=== PATIENT | female | born 1960 | race Caucasian/White ===

== ENCOUNTER 2023-12-01 11:55 | Inpatient (IN) ==
--- NOTE | 2023-12-01 12:19 | Emergency Department Note ---
ED Provider Note History of Present Illness Chief Complaint: Fall Stated Complaint: HEAD INJURY, FALL Time Seen by Provider: 12/01/23 12:19 This is a 63-year-old female with a history of anxiety, bipolar, COPD, gastric ulcer, migraines, atrial fibrillation, who presents to the emergency department with headache, neck pain, and multiple episodes of syncope over the past few weeks. Patient states that she passed out 2 weeks ago and hit her head. She believes she was unconscious for about 30 minutes. She was seen in [place] emergency department and was told that they wanted to admit her however she could not get a bed so she decided to leave. Over the last few weeks she has had ongoing headache and neck pain and states that she has passed out between 3 and 5 more additional times. She does have a history of atrial fibrillation which she can generally not feel when she is going in and out of A-fib. She was on Xarelto and a bunch of other medications however states that she has stopped all of these medications because she "fired my doctor" because "he wanted to protect his reputation" and would not prescribe her Klonopin. Patient states that she feels "out of my body". She has been vomiting intermittently over the past few weeks and cannot keep anything down. She denies any chest pain or shortness of breath, no new numbness or tingling or weakness in her upper or lower extremities, or abdominal pain. Home Medications Medication Instructions Recorded Confirmed Type clonazepam 1 mg tablet (Klonopin) 1 mg PO TID 06/29/22 12/01/23 History clotrimazole 1 % topical cream 1 applic topical BID #30 grams 06/29/22 12/01/23 Rx loperamide 2 mg capsule 2 mg PO Q6H PRN Other 06/29/22 12/01/23 History mirabegron 25 mg tablet,extended 25 mg PO DAILY 06/29/22 12/01/23 History release 24 hr (Myrbetriq) omeprazole 40 mg capsule,delayed 40 mg PO BID 06/29/22 12/01/23 History release rivaroxaban 10 mg tablet (Xarelto) 10 mg PO DAILY 06/29/22 12/01/23 History sertraline 100 mg tablet (Zoloft) 100 mg PO BID 06/29/22 12/01/23 History umeclidinium 62.5 mcg-vilanterol 1 inh inhalation UD 06/29/22 12/01/23 History 25 mcg/actuation powdr for inhalation (Anoro Ellipta) quetiapine 200 mg tablet 200 mg PO PM 12/01/23 12/01/23 History Allergies Allergy/AdvReac Type Severity Reaction Status Date / Time IV contrast media Allergy Uncoded 06/29/22 13:26 Latex Allergy Uncoded 06/29/22 13:26 Past Med/Surg History Problem List (Updated 12/01/23 @ 17:52 by PROSPER Stewart) Headache (Acute) Elevated troponin (Acute) Hypertensive urgency (Acute) Prediabetes Hyperlipidemia Atrial fibrillation Hearing difficulty Migraines Acid reflux Stomach ulcer Depression COPD (chronic obstructive pulmonary disease) Arthritis Anxiety Bipolar disorder Overactive bladder Tobacco use Vitamin D deficiency Moderate aortic regurgitation Medical History Cyst of ovary Pneumonia Heart attack Gout Congestive heart failure Surgical History History of cholecystectomy History of hysterectomy Family History Mother Myocardial infarction Father Myocardial infarction Brother Myocardial infarction Sister Myocardial infarction Denies family history of Ovarian cancer Prostate cancer Breast cancer Colorectal cancer Social History Smoking Status: Current every day smoker packs per day: 1; Second Hand Exposure: No; Hx Alcohol Use: No Hx Substance Use: No Preferred Language: Danish marital status: Single Current Living Situation: Alone current occupational status: retired Feels Safe at Home: Yes Dental Care, Regularly: No Physical Activity Frequency: Does not Exercise Physical Exam Vital Signs Vital Signs - 24 hr 12/01/23 11:58 12/01/23 14:03 12/01/23 14:36 Temperature 98.2 F Temperature Source Skin Pulse Rate 86 97 H Pulse Rate [Radial] 82 Pulse Rhythm [Radial] Regular Respiratory Rate 18 18 Respiratory Effort / Characteristics Non-Labored Respiratory Depth Normal Respiratory Pattern Regular Blood Pressure 240/99 H Blood Pressure [Right Arm] 241/96 H Blood Pressure Mean Blood Pressure Mean [Right Arm] 144 Pulse Oximetry 99 99 Oxygen Delivery Method Room Air Room Air Sepsis Recent Fever Within 48 Hours No Sepsis New/Unexplained Change in Mental Status No Sepsis Action Taken by Nursing No Action Required 12/01/23 14:36 12/01/23 14:39 12/01/23 14:42 Temperature Temperature Source Pulse Rate 78 68 Pulse Rate [Radial] Pulse Rhythm [Radial] Respiratory Rate 20 26 H Respiratory Effort / Characteristics Respiratory Depth Respiratory Pattern Blood Pressure 240/99 H 212/63 H Blood Pressure [Right Arm] Blood Pressure Mean 186 112 Blood Pressure Mean [Right Arm] Pulse Oximetry Oxygen Delivery Method Sepsis Recent Fever Within 48 Hours Sepsis New/Unexplained Change in Mental Status Sepsis Action Taken by Nursing 12/01/23 14:45 12/01/23 14:51 12/01/23 14:52 Temperature Temperature Source Pulse Rate 68 68 Pulse Rate [Radial] Pulse Rhythm [Radial] Respiratory Rate 17 Respiratory Effort / Characteristics Respiratory Depth Respiratory Pattern Blood Pressure 189/87 H 189/87 H Blood Pressure [Right Arm] Blood Pressure Mean 136 Blood Pressure Mean [Right Arm] Pulse Oximetry Oxygen Delivery Method Sepsis Recent Fever Within 48 Hours Sepsis New/Unexplained Change in Mental Status Sepsis Action Taken by Nursing 12/01/23 15:55 12/01/23 17:49 Temperature Temperature Source Pulse Rate 71 Pulse Rate [Radial] 75 Pulse Rhythm [Radial] Respiratory Rate 16 Respiratory Effort / Characteristics Respiratory Depth Respiratory Pattern Blood Pressure Blood Pressure [Right Arm] 195/114 H Blood Pressure Mean Blood Pressure Mean [Right Arm] 141 Pulse Oximetry 95 Oxygen Delivery Method Room Air Sepsis Recent Fever Within 48 Hours Sepsis New/Unexplained Change in Mental Status Sepsis Action Taken by Nursing CONSTITUTIONAL: Well developed, well nourished, in no acute distress. HEAD: Normocephalic, atraumatic. EYES: PERRL, conjunctivae normal, extraocular muscles intact. ENMT: External ears normal. Nose with normal external appearance, no congestion. Oral mucous membranes moist. Oropharynx normal. NECK: There is tenderness in the midline cervical spine RESPIRATORY: Breathing unlabored and symmetric. Lungs clear to auscultation bilaterally. No wheeze, rales, or rhonchi. CARDIOVASCULAR: Regular rate and rhythm. No murmurs, rubs, or gallops. Radial pulses 2+ bilaterally ABDOMEN: Normal bowel sounds. Soft, nontender, no peritonitis. No masses. No CVA tenderness bilaterally. MUSCULOSKELETAL: Moves all extremities at all joints without pain or difficulty. No cyanosis or edema. Back with full range of motion. No midline back tenderness. SKIN: [place], warm, dry. NEUROLOGIC: Awake, alert, oriented. Gaze is conjugate. Face symmetric, speech normal. Moves head and all four extremities spontaneously. Sensation and strength grossly intact. PSYCHIATRIC: Tangential at times. Easily redirected. Comments on examiner's eyes multiple times Course Administered Medications Discontinued Medications Acetaminophen (Ofirmev) 1,000 mg in 100 mls @ 400 mls/hr IV NOW STA Stop: 12/01/23 14:54 Last Admin: 12/01/23 14:49 Dose: 400 mls/hr Documented By: GREYSON Labetalol HCl (Labetalol Hcl Iv 5 Mg/Ml 20ml) 10 mg IV NOW STA Stop: 12/01/23 14:13 Last Admin: 12/01/23 14:36 Dose: 10 mg Documented By: GREYSON Co-signed By: ANGELA Magnesium Oxide (Magnesium Oxide 400 Mg Tab) 400 mg PO NOW STA Stop: 12/01/23 13:48 Last Admin: 12/01/23 14:01 Dose: 400 mg Documented By: GREYSON Ondansetron HCl (Ondansetron Inj 2 Mg/Ml 2 Ml Vial) 4 mg IV NOW STA Stop: 12/01/23 14:41 Last Admin: 12/01/23 14:49 Dose: 4 mg Documented By: GREYSON Medical Decision Making Differential Diagnosis Syncope, cardiac arrhythmia, concussion, intracranial hemorrhage, fracture, neurovascular injury, disc bulge, disc herniation, electrolyte imbalance, ACS, pulmonary embolism, benzodiazepine withdrawal, among other pathology Laboratory Data 12/01/23 13:05 12/01/23 13:05 Lab Results 12/01/23 12/01/23 Range/Units 13:05 15:53 WBC 5.27 (4.8-10.8) K/ul RBC 4.99 (4.20-5.40) M/uL Hgb 13.6 (12.0-16.0) g/dl Hct 42.5 (37.0-47.0) % MCV 85.2 (80.0-100.0) fL MCH 27.3 (25.0-34.0) pg MCHC 32.0 (32.0-36.0) g/dL RDW Std Deviation 41.9 (36.4-46.3) fL RDW Coeff of Juan 13.5 (11.5-14.5) % Plt Count 161 (130-400) K/uL MPV 10.3 (9.4-12.4) fL Immature Gran % (Auto) 0.4 % Neut % (Auto) 67.9 % Lymph % (Auto) 23.1 % Wirt % (Auto) 7.6 % Eos % (Auto) 0.4 % Baso % (Auto) 0.6 % Neut # (Auto) 3.58 (1.40-6.50) K/uL Lymph # (Auto) 1.22 (1.20-3.40) K/uL Wirt # (Auto) 0.40 (0.11-0.59) K/uL Eos # (Auto) 0.02 (0.00-0.50) K/uL Baso # (Auto) 0.03 (0.00-0.20) K/uL Immature Gran # (Auto) 0.02 (0.01-0.20) K/uL Sodium 141 (136-145) mmol/L Potassium 4.0 (3.5-5.1) mmol/L Chloride 106 (98-107) mmol/L Carbon Dioxide 28 (21-32) mmol/L Anion Gap 7 (3-11) BUN 11 (6-23) mg/dl Creatinine 1.04 (0.6-1.2) mg/dl Est Cr Clr Drug Dosing Not Reportable Est GFR ( Amer) 65.8 ml/min Est GFR (Non-Af Amer) 56.7 ml/min BUN/Creatinine Ratio 10.6 (10-20) Glucose 112 H (70-99(Fasting)) mg/dl Calcium 9.0 (8.6-10.3) mg/dl Magnesium 1.6 L (1.7-2.4) mg/dl Total Bilirubin 0.5 (0.2-1.0) mg/dl AST 20 (13-39) U/L ALT 16 (7-52) U/L Alkaline Phosphatase 72 (34-104) U/L Troponin I High Sens 36.8 H 33.8 H (0-14) pg/ml Total Protein 6.7 (6.0-8.3) gm/dl Albumin 4.1 (3.4-5.0) gm/dl Globulin 2.6 (2.5-4.0) gm/dl Albumin/Globulin Ratio 1.6 (0.9-2) TSH 3.205 (0.300-4.500) uIu/ml Imaging Data Radiologist's Impression: Cervical Spine CT 12/01/23 12:42 CT cervical spine wo con CLINICAL HISTORY: fall head injury syncope neck pain TECHNIQUE: Multidetector row helical CT of the cervical spine was performed without administration of intravenous contrast. Coronal and sagittal reformations were obtained. Automated dose lowering techniques and/or adjustment according to patient size were utilized for this exam. Comparison: None available at the time of this dictation. FINDINGS: No acute fractures or subluxations are identified. Degenerative changes are seen in the visualized spine. The alignment is normal. Biapical scarring is seen. IMPRESSION: Degenerative changes without evidence of acute bony injury. ACT 112: Negative or not required by law. Electronically signed by: Michael Cm M.D. 12/01/2023 1:[address] 12/01/23 12:42 CT OF THE HEAD WITHOUT CONTRAST CLINICAL HISTORY: Fall. Headache. COMPARISON STUDY: No previous studies for comparison. TECHNIQUE: Helical axial images of the head were obtained without IV contrast. Automated exposure control was utilized for the study. A dose lowering technique was utilized adhering to the principles of ALARA. FINDINGS: No acute intracranial hemorrhage, midline shift or mass effect is present. The ventricular system is unremarkable. The basal cisterns are patent. No extra-axial collections are present. There are no findings to suggest acute dural sinus thrombosis or acute territorial infarct. No significant calvarial abnormalities are present. Bilateral mastoid air cells are partially opacified. IMPRESSION: 1. No acute intracranial findings. 2. No calvarial fractures. 3. Partially opacified bilateral mastoid air cells. ACT 112: Negative or not required by law. Electronically signed by: Brian Jiménez M.D. 12/01/2023 1:18 PM Chest X-Ray 12/01/23 13:53 XR chest 1V portable HISTORY: headache neck pain vomiting elevated trop COMPARISON: Chest 10/25/2022. FINDINGS: No pneumothorax. No pleural effusions. The cardiac silhouette remains mildly enlarged. No focal lung consolidations to suggest a pneumonia. No evidence for pulmonary edema. No acute fractures. IMPRESSION: Mild cardiomegaly. Otherwise, no acute process within the chest. ACT 112: Negative or not required by law. Electronically signed by: Gianni Kahn M.D. 12/01/2023 2:52 PM Chest CTA 12/01/23 14:00 CHEST CTA for PULMONARY ARTERIES CT DOSE: 811.33 mGy.cm HISTORY: syncope, elevated troponin TECHNIQUE: Multiaxial CT images of the chest were performed following the intravenous administration of contrast to evaluate the pulmonary arteries. 3D/Maximal intensity projection images were also obtained. Sagittal and coronal reformations were also reviewed. A dose lowering technique was utilized adhering to the principles of ALARA. COMPARISON STUDY: None. FINDINGS: Mild to moderate atherosclerotic plaque within the normal caliber thoracic aorta. No evidence for an aortic dissection. The heart is mildly enlarged. There is a trace pericardial effusion noted. No pleural effusions. No filling defects within the pulmonary arteries to suggest a pulmonary embolus. Mild coronary artery calcifications are noted normal thyroid gland. Normal esophagus. There is a small hiatus hernia. The visualized liver, spleen, and right adrenal gland are unremarkable. Mild thickening of the left adrenal gland. There is a small fat-containing left-sided Bochdalek hernia. No mediastinal or hilar lymphadenopathy. No acute fractures. No pneumothorax. Emphysema. A 5 mm groundglass nodule within the left lower lobe on image 110. There is a 12 mm irregular nodule/density within the right lung apex on image 167. This could represent a small primary bronchogenic malignancy. No focal lung consolidations to suggest a pneumonia. No evidence for pulmonary edema. IMPRESSION: 1. No evidence for a pulmonary embolus. 2. Emphysema. 3. A 12 mm irregular nodule/density within the right lung apex. This is concerning for an early primary bronchogenic malignancy. Nonemergent pulmonary consultation with consideration for follow-up PET/CT recommended for further evaluation. 4. A 5 mm groundglass nodule within the left lower lobe. Attention at follow-up recommended. ACT 112: Positive. There are findings on this exam that require communication between the performing entity and the patient following Patient Test Result Information Act ([place] Act 112) guidelines. Electronically signed by: Gianni Kahn M.D. 12/01/2023 3:47 PM MDM Narrative This is a 63-year-old female with a history above who presents to the emergency department stating that she has had multiple syncopal episodes over the past 2 weeks, the first 1 resulted in her being seen in the emergency department in [place] with recommendations to admit her however she ended up leaving because a bed was not available. She states that she has had vomiting and multiple episodes of syncope since then as well as an ongoing headache and neck pain. States that she stopped all of her medications including blood thinners, history of atrial fibrillation. See above for further details. Patient resting comfortably in no distress. She refuses a blood pressure cuff because it is too tight. The remainder of her vitals are normal. Patient is somewhat tangential at times but can be redirected. She does have some midline cervical tenderness. An IV was inserted and labs were obtained. EKG: Sinus rhythm with a rate of 69. Intervals within normal limits. Normal axis. No acute ST elevation or evidence of ischemia. An order was placed for continuous cardiac monitoring at time of evaluation demonstrates a sinus rhythm in the 80s Chest x-ray 1 view mild cardiomegaly otherwise no acute process. Labs: No leukocytosis or anemia. Magnesium minimally low at 1.6, repleted orally. Her troponin is elevated at 36.8. 2-hour repeat is pending. TSH is normal. No transaminitis. Patient did finally allow her blood pressure to be taken and it is 241/96. This could be hypertensive urgency and explain the elevated troponin. She was given labetalol. I did evaluate her about this and she generally does not have high blood pressure and does not take antihypertensive medication. Blood pressure improved to 189/87 with 10 mg labetalol. Given her description of multiple episodes of syncope with an elevated troponin, decided to obtain a CTA of the chest to evaluate for PE. This demonstrates no evidence of PE however findings are concerning for possible malignancy. I reviewed this with her. Patient's headache did improve with IV Tylenol. Repeat troponin is stable. Case reviewed with ED attending Dr. Carreon. Will admit the patient for suspected hypertensive urgency. Patient comfortable with this plan. Case discussed with [facility] hospitalist group and she will be admitted under Dr. Rodríguez. Impression Hypertensive urgency, Elevated troponin, Headache Discharge Plan Visit Data Chief Complaint: Fall Stated Complaint: HEAD INJURY, FALL ED Provider: Alison Carreon ED Midlevel Provider: Félix Dumont Discharge Problem: Hypertensive urgency, Elevated troponin, Headache Patient Disposition: Admitted As Inpatient Condition: Good Forms Stand Alone Forms: My [facility] Prescriptions Prescriptions: No Action clotrimazole 1 % cream 1 applic topical BID Qty: 30 0RF clonazepam [Klonopin] 1 mg tablet 1 mg PO TID Myrbetriq 25 mg tablet extended release 24 hr 25 mg PO DAILY Xarelto 10 mg tablet 10 mg PO DAILY omeprazole 40 mg capsule,delayed release(DR/EC) 40 mg PO BID sertraline [Zoloft] 100 mg tablet 100 mg PO BID loperamide 2 mg capsule 2 mg PO Q6H PRN (Reason: Other) Anoro Ellipta 62.5-25 mcg/actuation blister with device 1 inh inhalation UD Rx Instructions: 1 inh po daily unsure, no fill history quetiapine 200 mg tablet 200 mg PO PM Referrals Referrals: PCP,NO [Primary Care Provider] - Discharge Problem: Headache Qualifiers: Headache type: unspecified Headache chronicity pattern: unspecified pattern I ntractability: not intractable Qualified Code(s): R51.9 - Headache, unspecified
--- NOTE | 2023-12-01 13:14 | CT Scan Report ---
CT cervical spine wo con CLINICAL HISTORY: fall head injury syncope neck pain TECHNIQUE: Multidetector row helical CT of the cervical spine was performed without administration of intravenous contrast. Coronal and sagittal reformations were obtained. Automated dose lowering techn iques and/or adjustment according to patient size were utilized for this exam. Comparison: None available at the time of this dictation. FINDINGS: No acute fractures or subluxations are identified. Degenerative changes are seen in the visualized sp ine. The alignment is normal. Biapical scarring is seen. IMPRESSION: Degenerative changes without evidence of acute bony injury. ACT 112: Negative or not required by law. Electronically signed by: Michael Cm M.D. 12/01/2023 1:11 PM
--- NOTE | 2023-12-01 13:20 | CT Scan Report ---
CT OF THE HEAD WITHOUT CONTRAST CLINICAL HISTORY: Fall. Headache. COMPARISON STUDY: No previous studies for comparison. TECHNIQUE: Helical axial images of the head were obtained without IV contrast. Automated exposure con trol was utilized for the study. A dose lowering technique was utilized adhering to the principles o f ALARA. FINDINGS: No acute intracranial hemorrhage, midline shift or mass effect is present. The ventricular system is unremarkable. The basal cisterns are patent. No extra-axial collections are present. There are no findings to suggest acute dural sinus thrombosis or acute territorial infarct. No significant calvarial abnormalities are present. Bilateral mastoid air cells are partially opacified. IMPRESSION: 1. No acute intracranial findings. 2. No calvarial fractures. 3. Partially opacified bilateral mastoid air cells. ACT 112: Negative or not required by law. Electronically signed by: Brian Jiménez M.D. 12/01/2023 1:18 PM
[2023-12-01 13:34] LABS: Basophils # (auto) 0.03 K/uL (0.00-0.20); Basophils % (auto) 0.6 %; Eosinophils # (auto) 0.02 K/uL (0.00-0.50); Eosinophils % (auto) 0.4 %; Hematocrit (blood only) 42.5 % (37.0-47.0); Hemoglobin 13.6 g/dl (12.0-16.0); Immature Granulocytes # (auto) 0.02 K/uL (0.01-0.20); Immature Granulocytes % (auto) 0.4 %; Lymphocytes # (auto) 1.22 K/uL (1.20-3.40); Lymphocytes % (auto) 23.1 %; Mean Corpuscular Hemoglobin 27.3 pg (25.0-34.0); Mean Corpuscular Volume 85.2 fL (80.0-100.0); Mean Platelet Volume 10.3 fL (9.4-12.4); Monocytes % (auto) 7.6 %; Neutrophils # (auto) 3.58 K/uL (1.40-6.50); Neutrophils % (auto) 67.9 %; Platelet Count 161 K/uL (130-400); RDW Coefficient of Variation 13.5 % (11.5-14.5); RDW Standard Deviation 41.9 fL (36.4-46.3); Red Blood Count 4.99 M/uL (4.20-5.40); White Blood Count 5.27 K/ul (4.8-10.8)
[2023-12-01 13:44] LABS: Alanine Aminotransferase 16 U/L (7-52); Albumin Globulin Ratio 1.6 (0.9-2); Albumin Level 4.1 gm/dl (3.4-5.0); Alkaline Phosphatase 72 U/L (34-104); Anion Gap 7 (3-11); Aspartate Aminotransferase 20 U/L (13-39); BUN Creatinine Ratio 10.6 (10-20); Bilirubin,Total 0.5 mg/dl (0.2-1.0); Blood Urea Nitrogen 11 mg/dl (6-23); Carbon Dioxide 28 mmol/L (21-32); Chloride 106 mmol/L (98-107); Est GFR (African American) 65.8 ml/min; Est GFR (Non-African American) 56.7 ml/min; Globulin 2.6 gm/dl (2.5-4.0); Glucose 112 mg/dl (70-99(Fasting)); Magnesium 1.6 mg/dl (1.7-2.4); Sodium 141 mmol/L (136-145); Total Protein 6.7 gm/dl (6.0-8.3)
[2023-12-01 13:50] LABS: Troponin I High Sensitivity 36.8 pg/ml (0-14)
[2023-12-01 14:00] LABS: Thyroid Stimulating Hormone 3.205 uIu/ml (0.300-4.500)
[2023-12-01] MEDS: MAGNESIUM OXIDE 400 MG TAB PO STA (14:01)
[2023-12-01] MEDS: LABETALOL HCL IV 5 MG/ML 20ML IV STA (14:36)
[2023-12-01] MEDS: ONDANSETRON INJ 2 MG/ML 2 ML VIAL IV STA (14:49)
[2023-12-01] MEDS: ACETAMINOPHEN 1,000 MG/100 ML VIAL IV STA (14:49)
--- NOTE | 2023-12-01 14:54 | XRay Report ---
XR chest 1V portable HISTORY: headache neck pain vomiting elevated trop COMPARISON: Chest 10/25/2022. FINDINGS: No pneumothorax. No pleural effusions. The cardiac silhouette remains mildly enlarged. No f ocal lung consolidations to suggest a pneumonia. No evidence for pulmonary edema. No acute fractures. IMPRESSION: Mild cardiomegaly. Otherwise, no acute process within the chest. ACT 112: Negative or not required by law. Electronically signed by: Gianni Kahn M.D. 12/01/2023 2:52 PM
--- NOTE | 2023-12-01 15:49 | CT Scan Report ---
CHEST CTA for PULMONARY ARTERIES CT DOSE: 811.33 mGy.cm HISTORY: syncope, elevated troponin TECHNIQUE: Multiaxial CT images of the chest were performed following the intravenous administration of contrast to evaluate the pulmonary arteries. 3D/Maximal intensity projection images were also obta ined. Sagittal and coronal reformations were also reviewed. A dose lowering technique was utilized a dhering to the principles of ALARA. COMPARISON STUDY: None. FINDINGS: Mild to moderate atherosclerotic plaque within the normal caliber thoracic aorta. No eviden ce for an aortic dissection. The heart is mildly enlarged. There is a trace pericardial effusion note d. No pleural effusions. No filling defects within the pulmonary arteries to suggest a pulmonary embo enrique. Mild coronary artery calcifications are noted normal thyroid gland. Normal esophagus. There is a small hiatus hernia. The visualized liver, spleen, and right adrenal gland are unremarkable. Mild th ickening of the left adrenal gland. There is a small fat-containing left-sided Bochdalek hernia. No m ediastinal or hilar lymphadenopathy. No acute fractures. No pneumothorax. Emphysema. A 5 mm groundgla ss nodule within the left lower lobe on image 110. There is a 12 mm irregular nodule/density within t he right lung apex on image 167. This could represent a small primary bronchogenic malignancy. No foc al lung consolidations to suggest a pneumonia. No evidence for pulmonary edema. IMPRESSION: 1. No evidence for a pulmonary embolus. 2. Emphysema. 3. A 12 mm irregular nodule/density within the right lung apex. This is concerning for an early prima ry bronchogenic malignancy. Nonemergent pulmonary consultation with consideration for follow-up PET/C T recommended for further evaluation. 4. A 5 mm groundglass nodule within the left lower lobe. Attention at follow-up recommended. ACT 112: Positive. There are findings on this exam that require communication between the performing entity and the patient following Patient Test Result Information Act ([place] Act 112) guidelines. Electronically signed by: Gianni Kahn M.D. 12/01/2023 3:47 PM
--- NOTE | 2023-12-01 16:56 | History & Physical Report ---
Date of Service December 01, 2023 Assessment & Plan (1) Hypertensive urgency: (2) Hyperlipidemia: (3) Atrial fibrillation: (4) Bipolar disorder: (5) COPD (chronic obstructive pulmonary disease): (6) Acid reflux: (7) Fall: (8) Headache: (9) Lung nodule seen on imaging study: (10) Syncope and collapse: (11) Depression: (12) Hypomagnesemia: (13) Poor appetite: (14) Weight loss: (15) Elevated troponin: Plan 63 yo F with PMHx of anxiety, bipolar, COPD, gastric ulcer, migraines, AFib who presented to the hospital on 12/01/23 for the evaluation of headache, neck pain, multiple episodes of syncope over the past few weeks. #Hypertensive urgency #Elevated troponin - admit to PCU with tele - cardiology consult - start on metoprolol BID - prn IV labetalol #Fall #Headache #Neck pain - CT c-spine: degenerative changes without evidence of acute bony injury - CT head: no acute intracranial findings, no calvarial fractures, partially opacified b/l mastoid air cells - fall precautions #Right lung apical nodule - CTA chest showing 12mm irregular nodule / density within the right lung apex, concerning for an early primary bronchogenic malignancy - pt follows up with pulm q6mo as outpatient for COPD, discussed with pt regarding seeing pulm sooner than Sept #Syncope - suspect in the setting hypertensive urgency, ?AFib - CT eval negative - will request cardiology evaluation - control BP - fall precautions #AFib - CHADS2 Vasc : 2 (gender, HTN) - pt used to take xarelto (?10mg) but stopped taking, will await further cardiology recs #HLD - check lipid profile #Bipolar disorder #Depression - home meds note quetiapine 200mg nightly, however, pt reports not taking for about 2 months, will start at 50mg nightly - home meds note sertraline 100mg BID, given pt has not been taking for about 2 months, will start sertraline 50mg qAM - pt will need outpatient follow up for dose adjustments #COPD - follows with pulm as outpatient - cont anoro #Hypomagnesemia - replete and monitor #h/o tobacco use - pt reports smoking cessation about 8 months ago #Poor appetite #Reported weight loss - will request dietary eval #Code status- DNR / DNI #Dispo: admit to PCU on telemetry Admission and Anticipated Discharge Date Admission Date: December 01, 2023 History of Present Illness Chief Complaint: Fall Primary Care Provider: PATRICIA PCP 63 yo F with PMHx of anxiety, bipolar, COPD, gastric ulcer, migraines, AFib who presented to the hospital on 12/01/23 for the evaluation of headache, neck pain, multiple episodes of syncope over the past few weeks. She reports that she passed out 2 weeks ago and hit her head and was potentially unconscious for 30 mins. She was evaluated at [place] emergency department. They wanted to evaluate her but she left due to delay in bed assignment. Since then she has been having headache and neck pain and she reports passing for about 3 to 5 times. She is supposed to be on medications including Xarelto but she stopped taking her meds since she fired her new doctor because he would not prescribe her Klonopin. She also stated that about 8 months ago, she quit cigs cold turkey and also stopped eating. She reports she was not eating for 8 months and was drinking ice tea through out the day. She notes occasionally eating kinyarwanda fries for salt craving. She states she was not eating due to no appetite. In the process, she lost 20 lbs over the course of 8 months. She also reported to ED that has vomit hilario intermittently over the past few weeks and cannot keep anything down but currently denies any nausea / vomiting. From syncope standpoint, she reports that she has been having postural dizziness for about 1 year and only about 2 weeks ago when she started losing consciousness. Aside from visit to [place] ED, she has not had this worked up in the past. In the ED, her ROS is positive for significant headache which has improved with IV tylenol. She is otherwise asymptomatic. Allergies Allergy/AdvReac Type Severity Reaction Status Date / Time IV contrast media Allergy Uncoded 06/29/22 13:26 Latex Allergy Uncoded 06/29/22 13:26 Home Medications Medication Instructions Recorded Confirmed Type clonazepam 1 mg tablet (Klonopin) 1 mg PO TID 06/29/22 12/01/23 History clotrimazole 1 % topical cream 1 applic topical BID #30 grams 06/29/22 12/01/23 Rx loperamide 2 mg capsule 2 mg PO Q6H PRN Other 06/29/22 12/01/23 History mirabegron 25 mg tablet,extended 25 mg PO DAILY 06/29/22 12/01/23 History release 24 hr (Myrbetriq) omeprazole 40 mg capsule,delayed 40 mg PO BID 06/29/22 12/01/23 History release rivaroxaban 10 mg tablet (Xarelto) 10 mg PO DAILY 06/29/22 12/01/23 History sertraline 100 mg tablet (Zoloft) 100 mg PO BID 06/29/22 12/01/23 History umeclidinium 62.5 mcg-vilanterol 1 inh inhalation UD 06/29/22 12/01/23 History 25 mcg/actuation powdr for inhalation (Anoro Ellipta) quetiapine 200 mg tablet 200 mg PO PM 12/01/23 12/01/23 History Past Med/Surg History Problem List (Updated 12/01/23 @ 18:21 by Susan Rodríguez MD) Weight loss Poor appetite Hypomagnesemia Syncope and collapse Lung nodule seen on imaging study Fall Headache (Acute) Elevated troponin (Acute) Hypertensive urgency (Acute) Prediabetes Hyperlipidemia Atrial fibrillation Hearing difficulty Migraines Acid reflux Stomach ulcer Depression COPD (chronic obstructive pulmonary disease) Arthritis Anxiety Bipolar disorder Overactive bladder Tobacco use Vitamin D deficiency Moderate aortic regurgitation Medical History Cyst of ovary Pneumonia Heart attack Gout Congestive heart failure Surgical History History of cholecystectomy History of hysterectomy Family History Mother Myocardial infarction Father Myocardial infarction Brother Myocardial infarction Sister Myocardial infarction Denies family history of Ovarian cancer Prostate cancer Breast cancer Colorectal cancer Social History Smoking Status: Current every day smoker packs per day: 1; Second Hand Exposure: No; Hx Alcohol Use: No Hx Substance Use: No Preferred Language: Peruvian marital status: Single Current Living Situation: Alone current occupational status: retired Feels Safe at Home: Yes Dental Care, Regularly: No Physical Activity Frequency: Does not Exercise Review of Systems Review of Systems: Comprehensive ROS completed Physical Exam Physical Exam: Gen: no acute distress, lying in bed comfortable, obese HEENT: normocephalic, atraumatic, moist mucous membranes, edentulous CVS: s1s2 nl, RRR, no murmurs / rubs / gallops Lungs: CTAB Abd: normal bowel sounds, soft, protuberant abdomen, nontender to palpation, no rigidity / guarding / rebound : no bailon Ext: no edema Neuro: AAOx 2-3 (required lots of prompts to recall location, year, mo , day) Psych: pleasant Results & Data Results & Data Vital Signs (Past 12 Hours) Vital Signs Temp Pulse Pulse Resp BP BP Pulse Ox 12/01/23 15:55 71 12/01/23 14:52 189/87 H 12/01/23 14:51 68 189/87 H 12/01/23 14:45 68 17 12/01/23 14:42 68 26 H 212/63 H 12/01/23 14:39 78 20 12/01/23 14:36 240/99 H 12/01/23 14:36 97 H 240/99 H 12/01/23 14:03 82 18 241/96 H 99 12/01/23 11:58 36.8 C 86 18 99 O2 Del Method 12/01/23 15:55 12/01/23 14:52 12/01/23 14:51 12/01/23 14:45 12/01/23 14:42 12/01/23 14:39 12/01/23 14:36 12/01/23 14:36 12/01/23 14:03 Room Air 12/01/23 11:58 Room Air Code Status & VTE Plan Code Status DNR / DNI, pt does not want BiPAP either PG Care Time/CCT Total # of Minutes Spent Total Time Spent with Patient: Total time spent is greater than 50% in coordination of care (as documented) at patient's floor/unit and/or counseling patient: Coding Level of Care Code 11126 INT INP/OBS CARE 3/75MIN Diagnoses Hypertensive urgency I16.0 Hyperlipidemia E78.5 Atrial fibrillation I48.91 Bipolar disorder F31.9 COPD (chronic obstructive pulmonary disease) J44.9 Acid reflux K21.9 Fall W19.XXXA Headache R51.9 Headache chronicity pattern: unspecified pattern Headache type: unspecified Intractability: not intractable Lung nodule seen on imaging study R91.1 Syncope and collapse R55 Depression F32.A Hypomagnesemia E83.42 Poor appetite R63.0 Weight loss R63.4 Elevated troponin R79.89 (8) Headache Headache chronicity pattern: unspecified pattern Headache type: unspecified Intractability: not intractable Qualified Code(s): R51.9 - Headache, unspecified
[2023-12-01] MEDS: METOPROLOL TARTRATE 25 MG TAB PO STA (19:04)
[2023-12-01] MEDS: LABETALOL HCL IV 5 MG/ML 20ML IV PRN (21:19)
[2023-12-01] MEDS: QUEtiapine FUMARATE 25 MG TABLET PO SCH (22:24)
[2023-12-01] MEDS: HEPARIN SOD 5,000 UNIT/0.5 ML VIAL SQ SCH (22:25)
[2023-12-01] MEDS: PANTOprazole 40 MG TAB PO SCH (22:25)
[2023-12-01] MEDS: hydrALAZINE HCL 20 MG/ML VIAL IV ONE (22:39)
--- NOTE | 2023-12-01 23:22 | Electrocardiogram Report ---
Test Reason : Blood Pressure : / mmHG Vent. Rate : 082 BPM Atrial Rate : 082 BPM P-R Int : 122 ms QRS Dur : 072 ms QT Int : 404 ms P-R-T Axes : 058 049 040 degrees QTc Int : 472 ms Normal sinus rhythm Nonspecific ST abnormality Abnormal ECG When compared with ECG of 25-OCT-2022 16:09, No significant change was found Confirmed by Tino Acosta ([id number]) on 12/01/2023 11:22:15 PM Referred By: Confirmed By:Tino Acosta
[2023-12-02] MEDS: ACETAMINOPHEN 325 MG TAB PO PRN (05:50)
[2023-12-02 07:02] LABS: Hematocrit (blood only) 36.7 % (37.0-47.0); Hemoglobin 11.5 g/dl (12.0-16.0); Mean Corpuscular Hemoglobin 27.3 pg (25.0-34.0); Mean Corpuscular Hgb Conc 31.3 g/dL (32.0-36.0); Mean Platelet Volume 10.1 fL (9.4-12.4); Platelet Count 135 K/uL (130-400); RDW Coefficient of Variation 13.6 % (11.5-14.5); RDW Standard Deviation 43.1 fL (36.4-46.3); Red Blood Count 4.22 M/uL (4.20-5.40); White Blood Count 4.41 K/ul (4.8-10.8)
[2023-12-02 07:26] LABS: Estimated Average Glucose 108 mg/dl; Hemoglobin A1C 5.4 % (4.5-5.6)
[2023-12-02 07:34] LABS: Anion Gap 5 (3-11); Blood Urea Nitrogen 12 mg/dl (6-23); Calcium 8.6 mg/dl (8.6-10.3); Carbon Dioxide 31 mmol/L (21-32); Chloride 103 mmol/L (98-107); Chol HDL Ratio 4.8 (0-5); Cholesterol 201 mg/dl (0-200); Creatinine Clr Calc Pharmacy 51.9 ml/min; Est GFR (African American) 55.3 ml/min; Est GFR (Non-African American) 47.7 ml/min; Glucose 102 mg/dl (70-99(Fasting)); HDL Cholesterol 42 mg/dl; LDL Cholesterol Calculated 123 mg/dl; Magnesium 1.8 mg/dl (1.7-2.4); Phosphorus 4.7 mg/dl (2.5-4.9); Sodium 139 mmol/L (136-145); Triglycerides 181 mg/dl (0-150); Troponin I High Sensitivity 40.9 pg/ml (0-14); VLDL Cholesterol 36 mg/dl (0-30)
[2023-12-02] MEDS: PERFLUTREN LIPID MICROSPHERE (DEFINITY) IV ONE (07:37)
[2023-12-02] MEDS: ASPIRIN 81 MG ECTAB PO SCH (08:33)
[2023-12-02] MEDS: SERTRALINE HCL 50 MG TABLET PO SCH (08:33)
[2023-12-02] MEDS: METOPROLOL TARTRATE 25 MG TAB PO SCH (08:33)
[2023-12-02] MEDS: UMECLIDINIUM/VILANTEROL 62.5/25MCG 7 PUFFS/INHALER INH SCH (08:33)
--- NOTE | 2023-12-02 09:47 | XCELERA ---
[id number]
[2023-12-02] MEDS: amLODIPine BESYLATE 5 MG TAB PO SCH (11:33)
--- NOTE | 2023-12-02 12:52 | Hospitalist Progress Note ---
Date of Service December 02, 2023 Assessment & Plan (1) Hypertensive urgency: (2) Hyperlipidemia: (3) Atrial fibrillation: (4) Bipolar disorder: (5) COPD (chronic obstructive pulmonary disease): (6) Acid reflux: (7) Fall: (8) Headache: (9) Lung nodule seen on imaging study: (10) Syncope and collapse: (11) Depression: (12) Hypomagnesemia: (13) Poor appetite: (14) Weight loss: (15) Elevated troponin: Plan 63 yo F with PMHx of anxiety, bipolar, COPD, gastric ulcer, migraines, AFib who presented to the hospital on 12/01/23 for the evaluation of headache, neck pain, multiple episodes of syncope over the past few weeks. #Hypertensive urgency #Elevated troponin - admit to PCU with tele - case discussed with cardiology, recs also adding amlodipine - cont metoprolol BID - prn IV labetalol #Fall #Headache #Neck pain - CT c-spine: degenerative changes without evidence of acute bony injury - CT head: no acute intracranial findings, no calvarial fractures, partially opacified b/l mastoid air cells - fall precautions #Right lung apical nodule - CTA chest showing 12mm irregular nodule / density within the right lung apex, concerning for an early primary bronchogenic malignancy - pt follows up with pulm q6mo as outpatient for COPD, discussed with pt regarding seeing pulm sooner than Sept #Syncope - suspect in the setting hypertensive urgency, ?AFib - CT eval negative - cardiology consulted - control BP - fall precautions #AFib - CHADS2 Vasc : 2 (gender, HTN) - pt used to take xarelto (?10mg) but stopped taking, will await further cardiology recs #HLD - check lipid profile #Bipolar disorder #Depression - home meds note quetiapine 200mg nightly, however, pt reports not taking for about 2 months, will start at 50mg nightly - home meds note sertraline 100mg BID, given pt has not been taking for about 2 months, will start sertraline 50mg qAM - pt will need outpatient follow up for dose adjustments #COPD - follows with pulm as outpatient - cont anoro #Hypomagnesemia - replete and monitor #h/o tobacco use - pt reports smoking cessation about 8 months ago #Poor appetite #Reported weight loss - will request dietary eval #Code status- DNR / DNI #Dispo: pending improvement in BP and final cards recs Admission and Anticipated Discharge Date Admission Date: December 01, 2023 Subjective No acute events overnight This morning, orthostatic vitals were attempted and pt felt dizzy as soon as she stood up. Unfortunately, BP could not be captured. Currently no new complaints Review of Systems Review of Systems: comprehensive ROS completed Physical Exam Physical Exam: Gen: no acute distress, lying in bed comfortable, obese HEENT: normocephalic, atraumatic, moist mucous membranes, edentulous CVS: s1s2 nl, RRR, no murmurs / rubs / gallops Lungs: CTAB Abd: normal bowel sounds, soft, protuberant abdomen, nontender to palpation, no rigidity / guarding / rebound : no bailon Ext: no edema Neuro: AAOx 2-3 (required lots of prompts to recall location, year, mo , day) Psych: pleasant Results & Data Results & Data Vital Signs (Past 12 Hours) Vital Signs Temp Pulse Pulse Resp BP BP Pulse Ox 12/02/23 12:05 36.9 C 74 17 160/80 H 93 12/02/23 10:30 74 168/74 H 12/02/23 08:00 61 12/02/23 07:51 36.7 C 110 H 18 166/82 H 92 12/02/23 02:44 36.6 C 66 18 163/74 H 93 12/02/23 00:50 68 O2 Del Method 12/02/23 12:05 Room Air 12/02/23 10:30 12/02/23 08:00 12/02/23 07:51 Room Air 12/02/23 02:44 Room Air 12/02/23 00:50 PG Care Time/CCT Total # of Minutes Spent Total Time Spent with Patient: Total time spent is greater than 50% in coordination of care (as documented) at patient's floor/unit and/or counseling patient: Coding Level of Care Code 93763 SUB INP/OBS CARE 3/50MIN Diagnoses Hypertensive urgency I16.0 Hyperlipidemia E78.5 Atrial fibrillation I48.91 Bipolar disorder F31.9 COPD (chronic obstructive pulmonary disease) J44.9 Acid reflux K21.9 Fall W19.XXXA Headache R51.9 Headache chronicity pattern: unspecified pattern Headache type: unspecified Intractability: not intractable Lung nodule seen on imaging study R91.1 Syncope and collapse R55 Depression F32.A Hypomagnesemia E83.42 Poor appetite R63.0 Weight loss R63.4 Elevated troponin R79.89 (8) Headache Headache chronicity pattern: unspecified pattern Headache type: unspecified Intractability: not intractable Qualified Code(s): R51.9 - Headache, unspecified
--- NOTE | 2023-12-02 14:04 | Cardiology Consultation ---
Date of Consultation December 02, 2023 Assessment & Plan (1) Hypertensive urgency: BP much improved today after doses of amlodipine and metoprolol. If BP rises this evening, could give additional amlodipine (increased dose to 5 mg twice daily), but would need to monitor for subsequent development of leg edema (common at higher doses). If amlodipine plus metoprolol is inadequate, could change to oral labetalol 100 mg twice daily tomorrow. If BP control reasonable tomorrow, okay for discharge but will need to establish with a primary manager intensive care unit promptly to further monitor and adjust vasoactive medications. (2) Severe concentric left ventricular hypertrophy: Presence of significant LVH suggest that she has had elevated blood pressure for some time, but prior PCP visits have not noted this. This raises the possibility that her blood pressure has only been elevated for the past year or so, in which case it would be worthwhile to evaluate for secondary hypertension (renal ultrasound, etc.). Would first attempt to obtain additional records to see if in fact she has been normotensive until recently and pursue secondary hypertension workup if she has. On the other hand, if she has a long standing history of hypertension which is documented elsewhere, workup may not be necessary. (3) Elevated troponin: Minimal troponin elevation most consistent with demand ischemia. Although her catheterization was sometime ago, the fact that she had normal coronaries in the past is reassuring. (4) Hypomagnesemia: Hypomagnesemia corrected. Long-term management of hypertension frequently requires addition of low-dose diuretic, could use triamterene/HCTZ 37.5/25 as an alternative to hydrochlorothiazide alone. This could be added back as an outpatient if BP remains elevated. (5) Paroxysmal A-fib: Remote episodes with no clear-cut recurrence recently. Would recommend MCOT (ambulatory telemetry) for 1 month as outpatient, risks of anticoagulation may exceed benefits if she has uncontrolled hypertension and goes for extended periods without atrial fibrillation. In the near term, if blood pressure is controlled here, recommend switching to apixaban 5 mg twice daily rather than reduced dose rivaroxaban (apparently she had some difficulties on the higher dose, but these do not appear to have been bleeding issues). (6) Moderate aortic regurgitation: Significant aortic regurgitation which would benefit from better blood pressure control. No need for intervention at this time given nondilated left ventricle with normal systolic function, however would follow with regular auscultation and serial echocardiograms. I would be glad to assume her cardiology care, I will arrange with my office for follow-up in 1 month. (7) Syncope and collapse: Etiology of prior syncopal episodes unclear, does not appear orthostasis related or vasovagal given the abrupt onset of loss of consciousness without prodrome. Could be dysrhythmic, ambulatory telemetry (MCOT) will help sort this out. History of Present Illness Reason for Consultation: hypertensive urgency, h/o AFib Requesting Physician: Susan Rodríguez MD Attending Physician: Susan Rodríguez MD History of Present Illness 63-year-old woman with history of bipolar disorder, normal coronary arteries (cath 2003), apparent remote atrial fibrillation (also around 2003, on reduced dose rivaroxaban/not on any negative chronotropes), who was admitted 12/01/2023 with multiple nonspecific complaints (headache, neck pain, recurrent syncope) and noted to be markedly hypertensive (peak SBP 240 mmHg, peak DBP 114 mmHg). Of note, she states that she has no prior history of hypertension and was not routinely taking any antihypertensive medication. Only outpatient PCP records are a telehealth visit in 2021 (no vitals at that time), and a primary care visit in early 2022 (BP 142/72 mmHg at that time). She has had several syncopal episodes, the last one about a month ago with some minor trauma (right-sided bruising and forehead contusion). She notes that these occur abruptly and she has little warning, no prodrome noted. Her last episode did occur after she was standing briefly and starting to walk when she abruptly lost consciousness. She has had an uneventful night and her BP improved after doses of labetalol and hydralazine. She denied any somatic complaints at the time of my evaluation this morning. Specifically, no chest pain, dyspnea, palpitations, or current lightheadedness. Allergies Allergy/AdvReac Type Severity Reaction Status Date / Time IV contrast media Allergy Uncoded 06/29/22 13:26 Latex Allergy Uncoded 06/29/22 13:26 Home Medications Medication Instructions Recorded Confirmed Type clonazepam 1 mg tablet (Klonopin) 1 mg PO TID 06/29/22 12/01/23 History clotrimazole 1 % topical cream 1 applic topical BID #30 grams 06/29/22 12/01/23 Rx loperamide 2 mg capsule 2 mg PO Q6H PRN Other 06/29/22 12/01/23 History mirabegron 25 mg tablet,extended 25 mg PO DAILY 06/29/22 12/01/23 History release 24 hr (Myrbetriq) omeprazole 40 mg capsule,delayed 40 mg PO BID 06/29/22 12/01/23 History release rivaroxaban 10 mg tablet (Xarelto) 10 mg PO DAILY 06/29/22 12/01/23 History sertraline 100 mg tablet (Zoloft) 100 mg PO BID 06/29/22 12/01/23 History umeclidinium 62.5 mcg-vilanterol 1 inh inhalation UD 06/29/22 12/01/23 History 25 mcg/actuation powdr for inhalation (Anoro Ellipta) quetiapine 200 mg tablet 200 mg PO PM 12/01/23 12/01/23 History Patient History Medical History Cyst of ovary Pneumonia Heart attack Gout Congestive heart failure Surgical History History of cholecystectomy History of hysterectomy Family History Mother Myocardial infarction Father Myocardial infarction Brother Myocardial infarction Sister Myocardial infarction Denies family history of Ovarian cancer Prostate cancer Breast cancer Colorectal cancer Social History Smoking Status: Former smoker Tobacco Type: Cigarettes packs per day: 1; Second Hand Exposure: No; Do You Dip or Chew Tobacco: No; Tobacco Cessation Education Requested by Patient: No Hx Alcohol Use: No Hx Substance Use: No Preferred Language: Sri Lankan Communication Ability: Effective Pr Specialist Required: No Beliefs That Will Affect Care: None marital status: Single Current Living Situation: Alone current occupational status: retired Other Information That Helps Us Care for You: No Feels Safe at Home: Yes Safety Concerns: Feels Safe At This Time Dental Care, Regularly: No Physical Activity Frequency: Does not Exercise Assistive Devices: Walker Physical Exam Physical Exam: No distress. BMI 34.7. BP by MD 150/64 mmHg seated, 140/60 mmHg standing (no symptoms). Pulse 74 bpm regular Respirations 17 unlabored. Skin: no ecchymoses or generalized lesions. HEENT: unremarkable. Neck: JVP at the clavicle at 90 degrees, bruit versus transmitted murmur right carotid. Lungs: clear. Cardiac: regular rhythm, normal S1-2, 2/6 crescendo/decrescendo systolic ejection murmur right upper sternal border rating to the right carotid, short diastolic blow right upper sternal border. Abdomen: benign. Extremities: no edema, pulses intact. Neurologic: normal affect and conversation, nonfocal. Results & Data Vital Signs (Past 12 Hours) Vital Signs Temp Pulse Pulse Resp BP BP Pulse Ox 12/02/23 12:05 98.4 F 74 17 160/80 H 93 12/02/23 10:30 74 168/74 H 12/02/23 08:00 61 12/02/23 07:51 98.1 F 110 H 18 166/82 H 92 12/02/23 02:44 97.9 F 66 18 163/74 H 93 O2 Del Method 12/02/23 12:05 Room Air 12/02/23 10:30 12/02/23 08:00 12/02/23 07:51 Room Air 12/02/23 02:44 Room Air Laboratory Results Troponin values 36, 33, and 40. Normal electrolytes, BUN 12, creatinine 1.2. Hemoglobin 11.5 with white count of 4.41. Diagnostic Findings ECG on admission showed sinus rhythm with a diffuse nonspecific curving ST depression in most leads. Chest x-ray showed mild cardiomegaly, otherwise unremarkable. Chest CT showed emphysema, no evidence of pulmonary embolism or heart failure. There is an echodensity right lung apex for which follow-up is recommended. Echocardiogram showed EF 65-70% with severe LVH, moderate aortic insufficiency, and mild mitral regurgitation, mild pulmonary hypertension. No prior study for comparison. PG Care Time/CCT Total # of Minutes Spent Total Time Spent with Patient: Total time spent is greater than 50% in coordination of care (as documented) at patient's floor/unit and/or counseling patient: Coding Level of Care Code 44240 IN/OBS CONSULT LVL 5,80M Diagnoses Hypertensive urgency I16.0 Severe concentric left ventricular hypertrophy I51.7 Elevated troponin R79.89 Hypomagnesemia E83.42 Paroxysmal A-fib I48.0 Moderate aortic regurgitation I35.1 Syncope and collapse R55
[2023-12-03 06:29] LABS: Hematocrit (blood only) 35.8 % (37.0-47.0); Hemoglobin 11.7 g/dl (12.0-16.0); Mean Corpuscular Hemoglobin 28.1 pg (25.0-34.0); Mean Corpuscular Hgb Conc 32.7 g/dL (32.0-36.0); Mean Corpuscular Volume 86.1 fL (80.0-100.0); Mean Platelet Volume 9.9 fL (9.4-12.4); Platelet Count 119 K/uL (130-400); RDW Coefficient of Variation 13.3 % (11.5-14.5); RDW Standard Deviation 41.8 fL (36.4-46.3); Red Blood Count 4.16 M/uL (4.20-5.40); White Blood Count 4.54 K/ul (4.8-10.8)
[2023-12-03 06:44] LABS: Calcium 8.4 mg/dl (8.6-10.3); Creatinine Clr Calc Pharmacy 58.3 ml/min; Est GFR (African American) 62.8 ml/min; Est GFR (Non-African American) 54.2 ml/min; Magnesium 1.8 mg/dl (1.7-2.4); Phosphorus 4.3 mg/dl (2.5-4.9); Potassium 3.9 mmol/L (3.5-5.1)
--- NOTE | 2023-12-03 07:58 | Hospitalist Progress Note ---
Date of Service December 03, 2023 Assessment & Plan (1) Hypertensive urgency: (2) Hyperlipidemia: (3) Atrial fibrillation: (4) Bipolar disorder: (5) COPD (chronic obstructive pulmonary disease): (6) Acid reflux: (7) Fall: (8) Headache: (9) Lung nodule seen on imaging study: (10) Syncope and collapse: (11) Depression: (12) Hypomagnesemia: (13) Poor appetite: (14) Weight loss: (15) Elevated troponin: Plan 63 yo F with PMHx of anxiety, bipolar, COPD, gastric ulcer, migraines, AFib who presented to the hospital on 12/01/23 for the evaluation of headache, neck pain, multiple episodes of syncope over the past few weeks. #Hypertensive urgency - resolved #Elevated troponin - demand - admit to PCU with tele - cardiology recs appreciated - cont metoprolol BID - cont amlodipine - prn IV labetalol #Fall #Headache #Neck pain - CT c-spine: degenerative changes without evidence of acute bony injury - CT head: no acute intracranial findings, no calvarial fractures, partially opacified b/l mastoid air cells - fall precautions #Right lung apical nodule - CTA chest showing 12mm irregular nodule / density within the right lung apex, concerning for an early primary bronchogenic malignancy - pt follows up with pulm q6mo as outpatient for COPD, discussed with pt regarding seeing pulm sooner than Sept #Syncope - suspect in the setting hypertensive urgency, ?AFib - CT eval negative - cardiology consulted - control BP - fall precautions #AFib - CHADS2 Vasc : 2 (gender, HTN) - pt used to take xarelto (?10mg) but stopped taking - cardiology recs appreciated, started on eliquis #HLD - lipid profile reviewed - will start statin #Bipolar disorder #Depression - home meds note quetiapine 200mg nightly, however, pt reports not taking for about 2 months, will start at 50mg nightly - home meds note sertraline 100mg BID, given pt has not been taking for about 2 months, will start sertraline 50mg qAM - pt will need outpatient follow up for dose adjustments #COPD - follows with pulm as outpatient - cont anoro #Hypomagnesemia - replete and monitor #h/o tobacco use - pt reports smoking cessation about 8 months ago #Poor appetite #Reported weight loss - will request dietary eval #Code status- DNR / DNI #Dispo: pending outpatient appointment setup, nurse navigator consulted Admission and Anticipated Discharge Date Admission Date: December 01, 2023 Subjective No acute events overnight Currently no new complaints States she is able to move around without getting dizzy Review of Systems Review of Systems: comprehensive ROS completed Physical Exam Physical Exam: Gen: no acute distress, lying in bed comfortable, obese HEENT: normocephalic, atraumatic, moist mucous membranes, edentulous CVS: s1s2 nl, RRR, no murmurs / rubs / gallops Lungs: CTAB Abd: normal bowel sounds, soft, protuberant abdomen, nontender to palpation, no rigidity / guarding / rebound : no bailon Ext: no edema Neuro: AAOx 2-3 (required lots of prompts to recall location, year, mo , day) Psych: pleasant Results & Data Results & Data Vital Signs (Past 12 Hours) Vital Signs Temp Pulse Pulse Resp BP BP Pulse Ox 12/03/23 03:05 36.9 C 63 17 136/77 93 12/03/23 00:29 67 12/02/23 22:33 37.1 C 68 18 140/77 94 O2 Del Method 12/03/23 03:05 Room Air 12/03/23 00:29 12/02/23 22:33 Room Air PG Care Time/CCT Total # of Minutes Spent Total Time Spent with Patient: Total time spent is greater than 50% in coordination of care (as documented) at patient's floor/unit and/or counseling patient: Coding Level of Care Code 97305 SUB INP/OBS CARE 3/50MIN Diagnoses Hypertensive urgency I16.0 Hyperlipidemia E78.5 Atrial fibrillation I48.91 Bipolar disorder F31.9 COPD (chronic obstructive pulmonary disease) J44.9 Acid reflux K21.9 Fall W19.XXXA Headache R51.9 Headache chronicity pattern: unspecified pattern Headache type: unspecified Intractability: not intractable Lung nodule seen on imaging study R91.1 Syncope and collapse R55 Depression F32.A Hypomagnesemia E83.42 Poor appetite R63.0 Weight loss R63.4 Elevated troponin R79.89 (8) Headache Headache chronicity pattern: unspecified pattern Headache type: unspecified Intractability: not intractable Qualified Code(s): R51.9 - Headache, unspecified
[2023-12-03] MEDS: APIXABAN 5 MG TABLET PO SCH (20:34)
[2023-12-03] MEDS: ATORVASTATIN 40 MG TAB PO SCH (20:34)
[2023-12-04] MEDS: METOPROLOL TARTRATE 1 MG/ML VIAL IV STA (02:05)
[2023-12-04 07:10] LABS: Hematocrit (blood only) 36.6 % (37.0-47.0); Mean Corpuscular Hgb Conc 32.8 g/dL (32.0-36.0); Mean Corpuscular Volume 85.5 fL (80.0-100.0); Platelet Count 120 K/uL (130-400); RDW Coefficient of Variation 13.2 % (11.5-14.5); RDW Standard Deviation 41.1 fL (36.4-46.3); Red Blood Count 4.28 M/uL (4.20-5.40); White Blood Count 5.05 K/ul (4.8-10.8)
[2023-12-04] MEDS: ONDANSETRON INJ 2 MG/ML 2 ML VIAL IV PRN (07:10)
[2023-12-04 07:26] LABS: BUN Creatinine Ratio 13.3 (10-20); Calcium 8.5 mg/dl (8.6-10.3); Creatinine Clr Calc Pharmacy 52.4 ml/min; Est GFR (African American) 55.3 ml/min; Est GFR (Non-African American) 47.7 ml/min; Magnesium 1.7 mg/dl (1.7-2.4)
[2023-12-04] MEDS: amLODIPine BESYLATE 5 MG TAB PO SCH (11:45)
--- NOTE | 2023-12-04 14:06 | Hospitalist Progress Note ---
Date of Service December 04, 2023 Assessment & Plan (1) Hypertensive urgency: (2) Hyperlipidemia: (3) Atrial fibrillation: (4) Bipolar disorder: (5) COPD (chronic obstructive pulmonary disease): (6) Acid reflux: (7) Fall: (8) Headache: (9) Lung nodule seen on imaging study: (10) Syncope and collapse: (11) Depression: (12) Hypomagnesemia: (13) Poor appetite: (14) Weight loss: (15) Elevated troponin: Plan 63 yo F with PMHx of anxiety, bipolar, COPD, gastric ulcer, migraines, AFib who presented to the hospital on 12/01/23 for the evaluation of headache, neck pain, multiple episodes of syncope over the past few weeks. #Hypertensive urgency -Hypertensive urgency has resolved, blood pressure is now under better control. -Currently on amlodipine 5 mg twice daily -However I would be wary of lower extremity edema by cardiology. #Elevated troponin - Secondary to demand ischemia - cardiology recs appreciated - cont metoprolol BID - cont amlodipine - prn IV labetalol #Fall #Headache #Neck pain - CT c-spine: degenerative changes without evidence of acute bony injury - CT head: no acute intracranial findings, no calvarial fractures, partially opacified b/l mastoid air cells - fall precautions #Right lung apical nodule - CTA chest showing 12mm irregular nodule / density within the right lung apex, concerning for an early primary bronchogenic malignancy - pt follows up with pulm q6mo as outpatient for COPD, discussed with pt regarding seeing pulm sooner than Sept #Syncope - suspect in the setting hypertensive urgency, ?AFib - CT eval negative - cardiology consulted - control BP - fall precautions -Plan is for outpatient rn cardiac rehab #AFib - CHADS2 Vasc : 2 (gender, HTN) - pt used to take xarelto (?10mg) but stopped taking - cardiology recs appreciated, started on eliquis #HLD - lipid profile reviewed - will start statin #Bipolar disorder #Depression - home meds note quetiapine 200mg nightly, however, pt reports not taking for about 2 months, will start at 50mg nightly - home meds note sertraline 100mg BID, given pt has not been taking for about 2 months, will start sertraline 50mg qAM - pt will need outpatient follow up for dose adjustments #COPD - follows with pulm as outpatient - cont anoro #Hypomagnesemia - replete and monitor #h/o tobacco use - pt reports smoking cessation about 8 months ago #Poor appetite #Reported weight loss - will request dietary eval #Code status- DNR / DNI #Dispo: pending outpatient appointment setup, nurse navigator consulted Admission and Anticipated Discharge Date Admission Date: December 01, 2023 Subjective Patient seen and examined today, states dizziness is much improved, denies chest pain or shortness of breath. Review of Systems Review of Systems: All systems reviewed are negative, apart from the ones contained in the history. Physical Exam Physical Exam: The patient is awake, alert and oriented 3, well developed and well nourished, normocephalic and atraumatic, lying in bed and in no acute distress. HEENT--PERRL, EOMI, mucous membranes and oropharynx mildly dry Neck--supple. No JVD. No bruits. Thyroid normal, trachea midline, no adenopathy. Heart--normal S1 and S2. No murmurs, rubs or gallops. Lungs--clear bilaterally, no respiratory distress, no accessory muscle use. Abdomen--normal bowel sounds and soft. Extremities--no cyanosis or clubbing. No edema. Dermatologic--normal skin turgor, normal color, no abnormal lymph nodes, no rash. Neurologic--cranial nerves II through XII grossly intact. Rheumatologic--normal range of motion. Psychiatric--normal affect. Results & Data Results & Data Vital Signs (Past 12 Hours) Vital Signs Temp Pulse Pulse Resp BP Pulse Ox O2 Del Method 12/04/23 11:15 97.9 F 57 L 18 150/79 H 95 Room Air 12/04/23 07:21 98.2 F 61 18 164/76 H 95 Room Air 12/04/23 07:20 59 L 12/04/23 07:20 Room Air 12/04/23 03:11 98.1 F 67 18 155/77 H 94 Room Air 12/04/23 02:05 67 PG Care Time/CCT Total # of Minutes Spent Total Time Spent with Patient: Total time spent is greater than 50% in coordination of care (as documented) at patient's floor/unit and/or counseling patient: Coding Level of Care Code 74569 SUB INP/OBS CARE 2/35MIN Diagnoses Hypertensive urgency I16.0 Hyperlipidemia E78.5 Atrial fibrillation I48.91 Bipolar disorder F31.9 COPD (chronic obstructive pulmonary disease) J44.9 Acid reflux K21.9 Fall W19.XXXA Headache R51.9 Headache chronicity pattern: unspecified pattern Headache type: unspecified Intractability: not intractable Lung nodule seen on imaging study R91.1 Syncope and collapse R55 Depression F32.A Hypomagnesemia E83.42 Poor appetite R63.0 Weight loss R63.4 Elevated troponin R79.89 Time Spent (min) 35 (8) Headache Headache chronicity pattern: unspecified pattern Headache type: unspecified Intractability: not intractable Qualified Code(s): R51.9 - Headache, unspecified
[2023-12-05 08:13] LABS: Hematocrit (blood only) 37.9 % (37.0-47.0); Hemoglobin 12.3 g/dl (12.0-16.0); Mean Corpuscular Hemoglobin 27.6 pg (25.0-34.0); Mean Corpuscular Hgb Conc 32.5 g/dL (32.0-36.0); Mean Platelet Volume 10.8 fL (9.4-12.4); Platelet Count 122 K/uL (130-400); RDW Coefficient of Variation 13.3 % (11.5-14.5); RDW Standard Deviation 41.1 fL (36.4-46.3); Red Blood Count 4.46 M/uL (4.20-5.40); White Blood Count 4.62 K/ul (4.8-10.8)
[2023-12-05] MEDS: hydroCHLOROthiazide 25 MG TAB PO SCH (08:37)
[2023-12-05 08:42] LABS: BUN Creatinine Ratio 15.7 (10-20); Calcium 9.2 mg/dl (8.6-10.3); Creatinine Clr Calc Pharmacy 51.9 ml/min; Est GFR (African American) 54.8 ml/min; Est GFR (Non-African American) 47.2 ml/min; Potassium 4.3 mmol/L (3.5-5.1)
--- NOTE | 2023-12-05 13:05 | Discharge Summary ---
Date of Service December 05, 2023 Admission HPI Per Admitting Provider 63 yo F with PMHx of anxiety, bipolar, COPD, gastric ulcer, migraines, AFib who presented to the hospital on 12/01/23 for the evaluation of headache, neck pain, multiple episodes of syncope over the past few weeks. She reports that she passed out 2 weeks ago and hit her head and was potentially unconscious for 30 mins. She was evaluated at [place] emergency department. They wanted to evaluate her but she left due to delay in bed assignment. Since then she has been having headache and neck pain and she reports passing for about 3 to 5 times. She is supposed to be on medications including Xarelto but she stopped taking her meds since she fired her new doctor because he would not prescribe her Klonopin. She also stated that about 8 months ago, she quit cigs cold turkey and also stopped eating. She reports she was not eating for 8 months and was drinking ice tea through out the day. She notes occasionally eating panamanian fries for salt craving. She states she was not eating due to no appetite. In the process, she lost 20 lbs over the course of 8 months. She also reported to ED that has vomitted intermittently over the past few weeks and cannot keep anything down but currently denies any nausea / vomiting. From syncope standpoint, she reports that she has been having postural dizziness for about 1 year and only about 2 weeks ago when she started losing consciousness. Aside from visit to [place] ED, she has not had this worked up in the past. In the ED, her ROS is positive for significant headache which has improved with IV tylenol. She is otherwise asymptomatic. Principal Diagnosis Hypertensive urgency, syncope Discharge Exam The patient is awake, alert and oriented 3, well developed and well nourished, normocephalic and atraumatic, lying in bed and in no acute distress. HEENT--PERRL, EOMI, mucous membranes and oropharynx mildly dry Neck--supple. No JVD. No bruits. Thyroid normal, trachea midline, no adenopathy. Heart--normal S1 and S2. No murmurs, rubs or gallops. Lungs--clear bilaterally, no respiratory distress, no accessory muscle use. Abdomen--normal bowel sounds and soft. Extremities--no cyanosis or clubbing. No edema. Dermatologic--normal skin turgor, normal color, no abnormal lymph nodes, no rash. Neurologic--cranial nerves II through XII grossly intact. Rheumatologic--normal range of motion. Psychiatric--normal affect. Discharge Data Allergies Allergy/AdvReac Type Severity Reaction Status Date / Time IV contrast media Allergy Uncoded 06/29/22 13:26 Latex Allergy Uncoded 06/29/22 13:26 Consultations 12/01/23 16:10 ED Decision to Admit Stat 12/01/23 21:12 Consult Cardiology Routine 12/03/23 17:52 Consult [facility] manager landscape Routine Ordered Studies 12/01/23 12:42 CT head/brain wo con Stat CT neck [CT cervical spine wo con] Stat 12/01/23 14:00 CT angio chest PE protocol Stat Hospital Course (1) Hypertensive urgency: (2) Hyperlipidemia: (3) Atrial fibrillation: (4) Bipolar disorder: (5) COPD (chronic obstructive pulmonary disease): (6) Acid reflux: (7) Fall: (8) Headache: (9) Lung nodule seen on imaging study: (10) Syncope and collapse: (11) Depression: (12) Hypomagnesemia: (13) Poor appetite: (14) Weight loss: (15) Elevated troponin: Plan 63 yo F with PMHx of anxiety, bipolar, COPD, gastric ulcer, migraines, AFib who presented to the hospital on 12/01/23 for the evaluation of headache, neck pain, multiple episodes of syncope over the past few weeks. #Hypertensive urgency -Hypertensive urgency has resolved, blood pressure is now under better control. -Currently on amlodipine 5 mg twice daily -However I would be wary of lower extremity edema by cardiology. -Discharge home on p.o. amlodipine 5 mg twice daily and hydrochlorothiazide 25 mg daily -Follow-up with cardiology outpatient #Elevated troponin - Secondary to demand ischemia - cardiology recs appreciated - cont metoprolol BID - cont amlodipine - prn IV labetalol #Fall #Headache #Neck pain - CT c-spine: degenerative changes without evidence of acute bony injury - CT head: no acute intracranial findings, no calvarial fractures, partially opacified b/l mastoid air cells - fall precautions #Right lung apical nodule - CTA chest showing 12mm irregular nodule / density within the right lung apex, concerning for an early primary bronchogenic malignancy - pt follows up with pulm q6mo as outpatient for COPD, discussed with pt regarding seeing pulm sooner than Sept #Syncope - suspect in the setting hypertensive urgency, ?AFib - CT eval negative - cardiology consulted - control BP - fall precautions -Plan is for outpatient treater #AFib - CHADS2 Vasc : 2 (gender, HTN) - pt used to take xarelto (?10mg) but stopped taking - cardiology recs appreciated, started on eliquis #HLD - lipid profile reviewed - will start statin #Bipolar disorder #Depression - home meds note quetiapine 200mg nightly, however, pt reports not taking for about 2 months, will start at 50mg nightly - home meds note sertraline 100mg BID, given pt has not been taking for about 2 months, will start sertraline 50mg qAM - pt will need outpatient follow up for dose adjustments #COPD - follows with pulm as outpatient - cont anoro #Hypomagnesemia - replete and monitor #h/o tobacco use - pt reports smoking cessation about 8 months ago #Poor appetite #Reported weight loss - will request dietary eval #Code status- DNR / DNI #Dispo: Discharge home Total Time Total Time Spent Total Time Spent (In Minutes): 35 Discharge Plan Discharge Items Patient Disposition: Home - Self-Care Reason For Visit: SYNCOPE Discharge Diagnosis: HTN, syncope Condition on Discharge: Good Activity: Resume your previous activity Non-emergency contact: Primary Care Provider and [employer] Call non-emergency contact if: you have any medication questions Follow-up/Referrals: PCP,NO [Primary Care Provider] - Diet: Regular Addtl Attending Provider Instructions: Please make appointment to follow-up with cardiology for heart monitor. You have been started on 2 new medications for your blood pressure hydrochlorothiazide and amlodipine. Pending Studies at Discharge: No Stand-Alone Forms: [employer], Smoking Cessation Medications and DC Order Prescriptions: New atorvastatin 40 mg Tablet 40 mg PO HS 30 Days Qty: 30 0RF amlodipine [Norvasc] 5 mg Tablet 5 mg PO BID 30 Days Qty: 60 0RF aspirin 81 mg Tablet,Delayed Release (Dr/Ec) 81 mg PO QAM 30 Days Qty: 30 0RF hydrochlorothiazide 25 mg Tablet 25 mg PO QAM 30 Days Qty: 30 0RF Eliquis 5 mg Tablet 5 mg PO BID 30 Days Qty: 60 0RF Continued clotrimazole 1 % cream 1 applic topical BID Qty: 30 0RF clonazepam [Klonopin] 1 mg tablet 1 mg PO TID Myrbetriq 25 mg tablet extended release 24 hr 25 mg PO DAILY omeprazole 40 mg capsule,delayed release(DR/EC) 40 mg PO BID sertraline [Zoloft] 100 mg tablet 100 mg PO BID loperamide 2 mg capsule 2 mg PO Q6H PRN (Reason: Other) Anoro Ellipta 62.5-25 mcg/actuation blister with device 1 inh inhalation UD Rx Instructions: 1 inh po daily unsure, no fill history quetiapine 200 mg tablet 200 mg PO PM Discontinued Xarelto 10 mg tablet 10 mg PO DAILY Discharge Orders: Discharge Order (Routine); Ordered 12/05/23 Ordered By: Shelton Colunga Admission Data Admit Date/Time: 12/01/23 18:03 Attending Provider: Shelton Colunga Admit Provider: Susan Rodríguez Primary Care Provider: PCP,NO Other Providers: Todd Vasquez; Susan Rodríguez Coding Level of Care Code 06481 INP/OBS DISCH >30 MIN Diagnoses Hypertensive urgency I16.0 Hyperlipidemia E78.5 Atrial fibrillation I48.91 Bipolar disorder F31.9 COPD (chronic obstructive pulmonary disease) J44.9 Acid reflux K21.9 Fall W19.XXXA Headache R51.9 Headache chronicity pattern: unspecified pattern Headache type: unspecified Intractability: not intractable Lung nodule seen on imaging study R91.1 Syncope and collapse R55 Depression F32.A Hypomagnesemia E83.42 Poor appetite R63.0 Weight loss R63.4 Elevated troponin R79.89 Time Spent (min) 35
== END 2023-12-05 15:11 | disposition home or self-care (01) | DRG 305 ==
LOC: SUATTDRO → ED 11:55 → 2S 18:03 → SUATTDRO 18:03 → 2S 20:35